=== PATIENT | male | born 1965 | race Caucasian/White ===

== ENCOUNTER → 2016-08-08 | Outpatient (CLI) | payer OTHER, SELFPAY ==
[~2016-08-08] MED LIST: ADVAIR 250-501 EACH INH; ASPIRIN (CHILDR81 MG PO; DESYREL150 MG PO; FLOMAX0.4 MG PO; KLONOPIN0.5 MG PO; LAMICTAL200 MG PO; LEVOTHROID (SY25 MCG PO; LIPITOR20 M1 PO; LIPITOR40 MG PO; LITHOBID300 MG PO; LOPRESSOR6.25 MG/0. PO; NICODERM/HABITR21 MG TRANS; SEROQUEL200 MG PO; THERAGRAN-M1 TAB PO; VASOTEC2.5 M1 PO
== END | disposition disaster alternative care site (69) ==
LOC: GRAD 08:16
DX: R10.11 Right upper quadrant pain (principal)

== ENCOUNTER 2016-08-28 19:44 | Emergency (ER) | payer OTHER, SELFPAY ==
--- NOTE | ~2016-08-28 | ER ---
PATIENT'S NAME: KADE JONES [facility] AGE: 50 Y [address] ROOM: [place] [address] LOCATION: [facility] ADMIT DATE: 08/28/2016 ER/Outpatient Report DISCHARGE DATE: 08/28/2016 FAMILY PHYSICIAN: Srinath Almendarez MD ATTENDING PHYSICIAN: Calin Russ Time of Arrival: 1949 hours. Time of Evaluation: 1950 hours. CHIEF COMPLAINT: Nosebleed. HISTORY OF PRESENT ILLNESS: The patient is a 50-year-old male, who presents to the emergency department today with chief complaint of nosebleed. He reports this started 2 hours prior to arrival. He denies history of previous nosebleeds. He is on aspirin. He denies any pain, 0/10 in severity. He denies any fevers or chills. No nasal congestion or nasal drainage. PAST MEDICAL HISTORY: Insulin-dependent diabetes, asthma, heart disease, hypertension, hypothyroid, gastroesophageal reflux disease, bipolar, depression, anxiety, incontinence. PAST SURGICAL HISTORY: Right knee, heart cath. SOCIAL HISTORY: The patient lives in [place]. He smokes a pack per day for 30 years. Denies any alcohol or illicit drug use. ALLERGIES: TO CODEINE. MEDICATIONS: Please see list. PRIMARY CARE DOCTOR: Dr. Almendarez. REVIEW OF SYSTEMS: All systems are reviewed by myself and are negative with the exception of those discussed in the HPI and past medical history. PHYSICAL EXAMINATION: VITAL SIGNS: Weight 107 kg, blood pressure 149/97, pulse 83, respiratory rate PATIENT'S NAME: KADE JONES [facility] AGE: 50 Y [address] ROOM: [place] [address] LOCATION: [facility] ADMIT DATE: 08/28/2016 ER/Outpatient Report DISCHARGE DATE: 08/28/2016 FAMILY PHYSICIAN: Srinath Almendarez MD ATTENDING PHYSICIAN: Calin Russ 16, temperature 97.9, oxygen saturation 94% on room air. GENERAL: The patient is a 50-year-old male, who appears stated age, in no acute distress at this time. HEENT: Head: Normocephalic, atraumatic. Pupils are equal, round, and reactive to light. The left naris with dried blood, some minimal amount of active bright red blood noted. The right naris is clear without evidence of bleeding. NECK: Supple. There is no nuchal rigidity. CARDIOVASCULAR: Regular rate and rhythm. No murmurs, rubs, or gallops. LUNGS: Clear to auscultation bilaterally. No wheezes, rales, or rhonchi. ABDOMEN: Soft, nontender, and nondistended. No rebound, rigidity, or guarding. MUSCULOSKELETAL: The patient moves all 4 extremities. SKIN: Warm and dry. LABORATORY DATA AND X-RAYS: None. IMPRESSION: 1. Left naris epistaxis with chemical cauterization. 2. Initial visit. EMERGENCY DEPARTMENT COURSE: The patient was brought back to the examination room. Seen and evaluated by myself. History and physical was performed, as described above. The patient's nares are applied with Afrin, and pressure is held for 15 minutes. The nares are exposed. The patient does have a vessel noted to be bleeding on the left naris in [place]essel[place] plexus. Silver nitrate for chemical cauterization is used just proximal of the vessel and around the vessel. The patient is observed here in the emergency department. He has not had any further bleeding. I have discussed at length follow up with Dr. Almendarez in 2 to 3 days for re-evaluation. I have discussed following up with ENT as needed for continued nosebleeds. The patient's questions are answered and is without further questions at this time. DISPOSITION: The patient discharged home in good condition. DO MEGHA NICHOLS/valentin PATIENT'S NAME: KADE JONES [facility] AGE: 50 Y [address] ROOM: [place], [place] [address] LOCATION: ED ADMIT DATE: 08/28/2016 ER/Outpatient Report DISCHARGE DATE: 08/28/2016 FAMILY PHYSICIAN: Srinath Almendarez MD ATTENDING PHYSICIAN: Calin Russ /[id number] d: 08/28/162346 t: 08/29/16 0157, OUTPATIENT REPORT
== END 2016-08-28 20:30 | disposition disaster alternative care site (69) ==
LOC: GMED 19:44
PROC: 0W3Q7ZZ Control Bleeding in Respiratory Tract, Via Natural or Artificial Opening (ICD-10-PCS; principal; 2016-08-28)
DX: R04.0 Epistaxis (principal); E11.9 Type 2 diabetes mellitus without complications; I10 Essential (primary) hypertension; F31.9 Bipolar disorder, unspecified; K21.9 Gastro-esophageal reflux disease without esophagitis; E03.9 Hypothyroidism, unspecified; J45.909 Unspecified asthma, uncomplicated; F17.210 Nicotine dependence, cigarettes, uncomplicated; Z88.5 Allergy status to narcotic agent
CPT/HCPCS: A9270

== ENCOUNTER 2016-08-29 23:22 | Emergency (ER) | payer OTHER, SELFPAY ==
--- NOTE | ~2016-08-29 | ER ---
PATIENT'S NAME: KADE JONES [facility] AGE: 50 Y [address] ROOM: [place] [address] LOCATION: ED ADMIT DATE: 08/29/2016 ER/Outpatient Report DISCHARGE DATE: 08/30/2016 FAMILY PHYSICIAN: Srinath Almendarez MD ATTENDING PHYSICIAN: Danny Miller Admission date and time documented on the medical record. I saw the patient at 2340 hours. CHIEF COMPLAINT: Left nasal bleed. HISTORY OF PRESENT ILLNESS: This patient is a 50-year-old male, who over the past hour started to have rebleeding from his left naris. He was seen previous day with nasal bleed that was cauterized. Rebled tonight, presented for evaluation. No fall or trauma. Did not blow or pick his nose. No headache, eyes, ears, nose, throat, neck, or spine pain. No chest pain or shortness of breath. No neuro changes. HOME MEDICATIONS: See attached medication list. ALLERGIES: CODEINE. SOCIAL HISTORY: He is a smoker, a pack of cigarettes a day. No alcohol. Nondrinker. SIGNIFICANT PAST MEDICAL HISTORY: Insulin-dependent diabetes mellitus type 2, asthma, atherosclerotic ischemic heart disease with coronary artery disease, hypertension, hypothyroidism, gastroesophageal reflux, tobacco abuse, depression, anxiety, incontinence, and bipolar disorder. OPERATIONS: Right knee surgery and heart catheterization. REVIEW OF SYSTEMS: All systems reviewed by me are negative with the exception of those discussed in the history of present illness. PHYSICAL EXAMINATION: VITAL SIGNS: Temperature 97.4 tympanic, pulse 87, respirations 14, blood pressure 167/101, and O2 saturation on room air is 96%. PATIENT'S NAME: KADE JONES [facility] AGE: 50 Y [address] ROOM: [place] [address] LOCATION: ED ADMIT DATE: 08/29/2016 ER/Outpatient Report DISCHARGE DATE: 08/30/2016 FAMILY PHYSICIAN: Srinath Almendarez MD ATTENDING PHYSICIAN: Danny Miller EMERGENCY DEPARTMENT COURSE: On examination, the patient has a small bleeder, mid septum anteriorly. I did go ahead and cauterize this area, was able to stop the bleeding. The patient had no further anterior bleeding or posterior bleeding. The patient tolerated the procedure fairly well. IMPRESSION: Left nasal bleed. PLAN: The patient dismissed home. Observation. Activity as tolerated. Avoid blowing or picking nose. Continue present home medications and care. Fluids and diet as tolerated. Follow up with personal physician as needed. Discussion ensued with the patient concerning my findings and recommendations, he understands. MD BEATRICE GORE/modl /[id number] d: 08/30/16307 t: 08/30/161828, OUTPATIENT REPORT
== END 2016-08-30 00:05 | disposition disaster alternative care site (69) ==
LOC: GMED 23:22
DX: R04.0 Epistaxis (principal); F17.210 Nicotine dependence, cigarettes, uncomplicated; E11.9 Type 2 diabetes mellitus without complications; J45.909 Unspecified asthma, uncomplicated; I25.10 Atherosclerotic heart disease of native coronary artery without angina pectoris; I10 Essential (primary) hypertension; E03.9 Hypothyroidism, unspecified; K21.9 Gastro-esophageal reflux disease without esophagitis; F31.9 Bipolar disorder, unspecified; Z88.8 Allergy status to other drugs, medicaments and biological substances; Z79.82 Long term (current) use of aspirin; Z79.899 Other long term (current) drug therapy